=== PATIENT | male | born 1985 | race Caucasian/White ===

== ENCOUNTER → 2017-02-07 | Outpatient (CLI) | payer BC ==
[~2017-02-07] MED LIST: IOPAMIDOL (ISOVUE-300) 100 ML BTL IV ONE
== END ==
LOC: CIMAGING 13:19
PROVIDERS: ATTEND Internal Medicine
DX: Q63.2 Ectopic kidney (principal); N20.0 Calculus of kidney
CPT/HCPCS: 74178-PO; Q9967